=== PATIENT | female | born 1985 | race African-American/Black ===

== ENCOUNTER 2020-05-25 14:31 | Emergency (ER) | payer OTHER ==
[2020-05-25 15:02] LABS: BASOPHIL 0.3 % (0-2); EOSINOPHIL 0.7 % (0-5); HCT 38.3 % (37.0-47.0); HGB 12.8 g/dl (12.5-16.0); LYMPHOCYTE 18.3 % (15-48); MCH 30.4 pg (25.0-31.0); MCHC 33.4 g/dL (32.0-36.0); MONOCYTE 3.8 % (0-12); MPV 10.2 fL (6.0-9.5); NEUTROPHIL 76.4 % (41-80); NRBC 0; PLT 286 K/uL (150-400); RBC 4.21 M/uL (4.20-5.40); RDW 15.9 % (11.5-14.0); WBC 10.9 K/uL (4.0-10.5)
[2020-05-25 15:02] LABS: BILIRUBIN NEGATIVE (NEGATIVE); BLOOD 1+ Ery/uL (NEGATIVE); CLARITY CLEAR (CLEAR); COLOR YELLOW (YELLOW); GLUCOSE (U) NORMAL (NORMAL); LEUKOCYTES NEGATIVE Leu/uL (NEGATIVE); NITRITE NEGATIVE (NEGATIVE); PROTEIN NEGATIVE (NEGATIVE); UROBILINOGEN 0.2 mg/dL (0.2-1.0); pH 6.5 (5.0-9.0)
[2020-05-25 15:19] LABS: ALBUMIN 3.6 g/dL (3.4-5.0); BILIRUBIN - TOTAL 0.3 mg/dL (0.2-1.0); CREATININE 0.62 mg/dL (0.51-0.95); GLOBULIN (CALCULATION) 4.1 g/dL; POTASSIUM 3.6 mmol/L (3.5-5.1); TOTAL PROTEIN 7.7 g/dL (6.4-8.2)
[2020-05-25 15:25] LABS: URINARY WBC RARE
[2020-05-25] MEDS ORDERED: NAPROXEN500 MG PO (17:50)
[2020-05-25] MEDS ORDERED: ONDANSETRON ODT4 MG PO (17:50)
== END 2020-05-25 18:25 | disposition home or self-care (01) ==
LOC: FER 14:31
PROVIDERS: Physician Assistant
DX: R10.32 Left lower quadrant pain (principal); R31.9 Hematuria, unspecified; R11.0 Nausea; N83.8 Other noninflammatory disorders of ovary, fallopian tube and broad ligament; F17.210 Nicotine dependence, cigarettes, uncomplicated; Z98.51 Tubal ligation status; Z98.890 Other specified postprocedural states; Z88.1 Allergy status to other antibiotic agents
CPT/HCPCS: 36415; 76856; 80053; 81001; 85025; J1885; J2405